=== PATIENT | male | born 1940 | race Caucasian/White ===

== ENCOUNTER 2017-11-21 09:58 | Day surgery (SDC) | payer OTHER, MEDICARE ==
[~2017-11-21] VITALS: Ht 170.2 cm; Wt 77.6 kg
[~2017-11-21 09:58] MED LIST: ASPIR 8181 M1 PO; FLORASTOR250 MG PO; FOLIC ACID1 MG PO; HYTRIN5 MG PO; ISOSORBIDE MONO30 MG PO; LASIX40 MG PO; LEVEMIR FL100 UNIT/1 SC; LEXAPRO20 MG PO; LIPITOR20 MG PO; LOPRESSOR25 MG PO; NEURONTIN100 MG PO; PREDNISONE5 MG PO; PRINIVIL10 MG PO; PROAIR HFA8.5 GM IH; PROCRIT; PROTONIX40 MG PO; ROCALTROL0.25 MCG PO; SYMBICORT60 INHALA1 IH; ULTRAM50 MG PO; VITAMIN D31000 UNIT PO; ZUPLENZ4 MG PO
[2017-11-21 10:26] VITALS: BP 201/87
[2017-11-21 10:35] LABS: HEMATOCRIT 32.5 % (38.0-50.0); HEMOGLOBIN 10.6 G/DL (12.5-16.6); MCH 29.7 PG (29.0-34.0); MCHC 32.6 G/DL (30.0-36.0); PLATELET COUNT 181 K/uL (156-360); RBC DIS.WIDTH-SD 50.1 % (39-53); RED BLOOD COUNT 3.57 M/uL (4.00-5.50); WHITE BLOOD COUNT 10.6 K/uL (4.1-10.2)
[2017-11-21 10:55] LABS: CHLORIDE 110 MEQ/L (99-109); CREATININE 3.7 MG/DL (0.6-1.3); GFR ESTIMATE (CALCULATED) 17 mL/min/ (58.99-99999); GLUCOSE 98 mg/dL (70-99); POTASSIUM 3.8 MEQ/L (3.7-5.4); SODIUM 144 MEQ/L (136-147); UREA NITROGEN (BUN) 72 mg/dL (9-23)
[2017-11-21] MEDS ORDERED: NORCO 5/3251 TABLET PO (16:13)
[2017-11-21 17:25] VITALS: BP 198/77
[2017-11-21 18:23] VITALS: BP 189/75
== END 2017-11-21 18:30 | disposition home or self-care (01) ==
LOC: SDC 09:58
PROVIDERS: Surgery
DX: I12.0 Hypertensive chronic kidney disease with stage 5 chronic kidney disease or end stage renal disease (principal); E11.22 Type 2 diabetes mellitus with diabetic chronic kidney disease; N18.6 End stage renal disease; J44.9 Chronic obstructive pulmonary disease, unspecified; I25.10 Atherosclerotic heart disease of native coronary artery without angina pectoris; I25.2 Old myocardial infarction; E78.5 Hyperlipidemia, unspecified; K21.0 Gastro-esophageal reflux disease with esophagitis; K90.0 Celiac disease; F41.8 Other specified anxiety disorders; E66.3 Overweight; Z68.26 Body mass index [BMI] 26.0-26.9, adult; D64.9 Anemia, unspecified; G47.30 Sleep apnea, unspecified; E21.1 Secondary hyperparathyroidism, not elsewhere classified; Z95.5 Presence of coronary angioplasty implant and graft; Z85.828 Personal history of other malignant neoplasm of skin; Z86.711 Personal history of pulmonary embolism; Z86.14 Personal history of Methicillin resistant Staphylococcus aureus infection; Z88.0 Allergy status to penicillin; Z79.4 Long term (current) use of insulin; Z79.82 Long term (current) use of aspirin
CPT/HCPCS: 80048; 82948; 85027; 87641; J0690; J1644; J2250; J3010

== ENCOUNTER 2017-12-21 12:17 | Day surgery (SDC) | payer OTHER, MEDICARE ==
[~2017-12-21] VITALS: Ht 171.4 cm; Wt 80.3 kg
[~2017-12-21 12:17] MED LIST changes: +NORCO 5/3251 TABLET PO
[2017-12-21 13:06] VITALS: BP 173/76
[2017-12-21 13:13] LABS: HEMATOCRIT 29.9 % (38.0-50.0); HEMOGLOBIN 9.6 G/DL (12.5-16.6); MCH 29.4 PG (29.0-34.0); MCHC 32.1 G/DL (30.0-36.0); MCV 91.7 FL (86-99); PLATELET COUNT 142 K/uL (156-360); RBC DIS.WIDTH-SD 49.8 % (39-53); RED BLOOD COUNT 3.26 M/uL (4.00-5.50); WHITE BLOOD COUNT 9.4 K/uL (4.1-10.2)
[2017-12-21 13:37] LABS: CHLORIDE 110 MEQ/L (99-109); GFR ESTIMATE (CALCULATED) 15 mL/min/ (58.99-99999); GLUCOSE 104 mg/dL (70-99); POTASSIUM 4.2 MEQ/L (3.7-5.4); SODIUM 147 MEQ/L (136-147); UREA NITROGEN (BUN) 86 mg/dL (9-23)
[2017-12-21 15:30] VITALS: BP 183/74
== END 2017-12-21 16:40 | disposition home or self-care (01) ==
LOC: SDC 12:17
PROVIDERS: Surgery
DX: I12.0 Hypertensive chronic kidney disease with stage 5 chronic kidney disease or end stage renal disease (principal); E11.22 Type 2 diabetes mellitus with diabetic chronic kidney disease; N18.6 End stage renal disease; K21.9 Gastro-esophageal reflux disease without esophagitis; D63.1 Anemia in chronic kidney disease; I25.10 Atherosclerotic heart disease of native coronary artery without angina pectoris; E78.5 Hyperlipidemia, unspecified; E21.1 Secondary hyperparathyroidism, not elsewhere classified; Z79.82 Long term (current) use of aspirin; Z79.4 Long term (current) use of insulin; Z86.14 Personal history of Methicillin resistant Staphylococcus aureus infection
CPT/HCPCS: 71045; 80048; 82948; 85027; 87641; C1769; C1788; J0690; J1644; J2250; J2405; J3010

== ENCOUNTER → 2018-03-06 | Outpatient (CLI) | payer OTHER, MEDICARE | END | disposition home or self-care (01) | LOC: AMB 10:27 | PROC: 05PYX3Z Removal of Infusion Device from Upper Vein, External Approach (ICD-10-PCS; principal; 2018-03-06) | DX: Z45.2 Encounter for adjustment and management of vascular access device (principal); N18.6 End stage renal disease | CPT/HCPCS: 99211 ==